=== PATIENT | female | born 1975 | race Caucasian/White ===

== ENCOUNTER 2020-11-11 13:51 | Emergency (ER) | payer SELFPAY ==
[~2020-11-11] VITALS: Ht 149.9 cm; Wt 127.0 kg
[2020-11-11] MEDS ORDERED: SODIUM CHLORIDE 0.9% 1,000 ML IVB ONE (14:15)
[2020-11-11 14:31] LABS: Basophils # (auto) 0.1 10 ^3/uL (0-0.2); Basophils % (auto) 0.6 % (0.0-2.0); Eosinophils # (auto) 0.3 10 ^3/uL (0-0.8); Eosinophils % (auto) 2.9 % (0.0-7.0); Hematocrit 43.7 % (36.0-46.0); Hemoglobin 15.2 g/dL (12.2-16.2); Lymphocytes # (auto) 1.1 10 ^3/uL (0.4-5.4); Lymphocytes % (auto) 12.9 % (10.0-50.0); Mean Corpuscular Hemoglobin 30.1 pg (28.0-32.0); Mean Corpuscular Hgb Conc. 34.8 g/dL (32.0-36.0); Mean Corpuscular Volume 86.4 fL (80.0-100.0); Monocytes # (auto) 0.4 10 ^3/uL (0-1.3); Neutrophils % (auto) 78.6 % (37.0-80.0); Nucleated Red Blood Cells % 0.5 %; Platelet Count (auto) 225 10^3/uL (140-450); Red Blood Cells 5.05 10^6/uL (4.0-5.20); Red Cell Distribution Width 13.9 % (11.8-14.3); White Blood Cell 8.9 10^3/uL (4.4-10.8)
[2020-11-11 14:38] LABS: INR 1.02 (0.9-1.15); Partial Thromboplastin Time 26.1 sec (23.0-31.2)
[2020-11-11] MEDS ORDERED: ONDANSETRON HCL 4 MG/2 ML VIAL IV ONE (15:15)
[2020-11-11] MEDS ORDERED: metroNIDAZOLE 500MG/100ML 100 ML IV ONE (15:15)
[2020-11-11] MEDS ORDERED: cefTRIAXone 1GM/50ML D5W 50 ML IV ONE (15:15)
[2020-11-11 15:21] LABS: Alkaline Phosphatase 59 U/L (45-117); Aspartate Aminotransferase 21 U/L (15-37); Blood Urea Nitrogen 12 mg/dL (7-18); Chloride 108 mmol/L (98-107); GFR African American 91 mL/min; GFR Non-African American 76 mL/min; Sodium 139 mmol/L (136-145)
[2020-11-11 15:22] LABS: Alanine Aminotransferase 38 U/L (13-56); Albumin 3.4 g/dL (3.4-5.0); Anion Gap 8 (5-15); Bilirubin, Total < 0.1 mg/dL (0.2-1.0); Calcium 8.6 mg/dL (8.5-10.1); Carbon Dioxide 23 mmol/L (21-32); Glucose 102 mg/dL (74-106); Total Protein 7.2 g/dL (6.4-8.2)
[2020-11-11 15:23] LABS: Magnesium 2.4 mg/dL (1.6-2.6)
[2020-11-11 15:41] LABS: Urine Bacteria FEW /hpf (None Seen); Urine Blood 2+ /uL (Negative); Urine Mucus FEW (None Seen); Urine Specific Gravity 1.023 (1.001-1.035); Urine WBC 2 /hpf (0 - 5)
[2020-11-11 18:00] VITALS: BP 105/60
== END 2020-11-11 17:51 | disposition home or self-care (01) ==
LOC: ER 13:51
DX: K52.9 Noninfective gastroenteritis and colitis, unspecified (principal); R11.0 Nausea; Z90.49 Acquired absence of other specified parts of digestive tract
CPT/HCPCS: 36415; 71045; 74176; 80053; 81001; 83690; 83735; 85025; 85610; 85730; 96365; 96368; 96375; 99285; J0696; J2405; J3490; J7030

== ENCOUNTER 2021-11-25 05:28 | Emergency (ER) | payer BC, OTHER ==
[~2021-11-25] VITALS: Ht 149.9 cm; Wt 85.3 kg
[2021-11-25 05:48] LABS: Basophils # (auto) 0.1 10 ^3/uL (0-0.2); Basophils % (auto) 0.9 % (0.0-2.0); Eosinophils # (auto) 0.2 10 ^3/uL (0-0.8); Eosinophils % (auto) 2.6 % (0.0-7.0); Hemoglobin 15.3 g/dL (12.2-16.2); Lymphocytes # (auto) 1.1 10 ^3/uL (0.4-5.4); Lymphocytes % (auto) 13.3 % (10.0-50.0); Mean Corpuscular Hgb Conc. 36.4 g/dL (32.0-36.0); Mean Corpuscular Volume 85.1 fL (80.0-100.0); Monocytes # (auto) 0.3 10 ^3/uL (0-1.3); Monocytes % (auto) 3.5 % (0.0-12.0); Neutrophils # (auto) 6.5 10 ^3/uL (1.6-8.6); Neutrophils % (auto) 79.7 % (37.0-80.0); Nucleated Red Blood Cells % 0.2 %; Red Blood Cells 4.94 10^6/uL (4.0-5.20); Red Cell Distribution Width 13.9 % (11.8-14.3); White Blood Cell 8.1 10^3/uL (4.4-10.8)
[2021-11-25 06:12] LABS: Albumin 3.5 g/dL (3.4-5.0); Calcium 8.8 mg/dL (8.5-10.1); Potassium 4.1 mmol/L (3.5-5.1)
[2021-11-25 06:16] LABS: BUN/Creatinine Ratio 16.7; Bilirubin, Total 0.5 mg/dL (0.2-1.0); Total Protein 7.1 g/dL (6.4-8.2)
[2021-11-25 08:24] LABS: Urine Bacteria None Seen /hpf (None Seen)
[2021-11-25 09:33] LABS: Urine Specific Gravity 1.028 (1.001-1.035)
[2021-11-25 09:34] LABS: Urine Blood Negative /uL (Negative)
[2021-11-25] MEDS ORDERED: CEPH-509 PO (10:42)
[2021-11-25 11:00] VITALS: BP 103/57
[2021-11-25 11:19] LABS: Urine WBC 6 /hpf (0 - 5)
== END 2021-11-25 11:04 | disposition home or self-care (01) ==
LOC: ER 05:32
DX: N39.0 Urinary tract infection, site not specified (principal); Z90.49 Acquired absence of other specified parts of digestive tract
CPT/HCPCS: 36415; 74176; 80053; 81001; 83690; 85025